=== PATIENT | female | born 1995 | race Caucasian/White ===

== ENCOUNTER → 2021-02-01 12:06 | Outpatient (CLI) | payer OTHER, SELFPAY ==
--- NOTE | 2021-02-01 | DI.MRI.S_ITS ---
PROCEDURE: MR HAND LT WO CON INDICATIONS: Unspecified injury of unspecified wrist, hand and finger(s), TECHNIQUE: Noncontrast coronal T1 spin echo and T2 fast spin echo with fat saturation, axial proton density fast spin echo and T2 fast spin echo with fat saturation, sagittal T1 spin echo and STIR through the thumb. COMPARISON: None. FINDINGS: Image quality: Excellent. Bones: The bones are normally aligned, without marrow contusions or fractures. No intra-osseous lesions. 1st carpometacarpal joint: On sagittal images, the dorsal radial ligament and posterior oblique ligament appear intact. The intermetacarpal ligament between 1st and 2nd metacarpal bases also appears intact. On the volar aspect, the deep and superficial layers of the anterior oblique ligament appear intact. 1st metacarpal phalangeal joint: The proper and accessory components of radial collateral ligament appears intact along with overlying fibers of abductor pollicis longus tendon. There is suggestion of moderate grade partial thickness tear involving distal ulnar collateral ligaments at their distal insertion with surrounding soft tissue edema. Overlying fibers of adductor pollicis muscle appears intact. The upper neurosis of the adductor pollicis muscle also appears normal. Volar plate appears intact on sagittal images, situated between radial and ulnar sesamoids. Muscles and tendons: No gross signal abnormality is seen in the seen on muscles. Extensor and flexor tendons are grossly intact. No soft tissue signal abnormality. No ganglion cysts. IMPRESSION: 1. Suggestion of moderate grade sprain/partial-thickness tear involving ulnar collateral ligaments at their distal insertions with mild surrounding soft tissue edema. Overlying abductor pollicis longus muscle and upper neurosis are intact. 2. No other ligamentous pathology is seen in left thumb. Flexor and extensor tendons are intact. No muscle signal abnormality. 3. No marrow edema. No fracture or dislocation. Dictated by: Higinio Mclean M.D. on 02/01/2021 at 14:23 Approved by: Higinio Mclean M.D. on 02/01/2021 at 15:06
== END ==
PROVIDERS: PCP Nurse Practitioner Family; Referring Provider Nurse Practitioner Family; Visit Provider Nurse Practitioner Family
DX: S69.90XA Unspecified injury of unspecified wrist, hand and finger(s), initial encounter (principal)
CPT/HCPCS: 73218

== ENCOUNTER → 2021-07-12 11:39 | Outpatient (CLI) | payer OTHER, SELFPAY ==
[2021-07-12 12:09] LABS: COVID19 -Nasal RAPID Negative (Negative)
== END ==
PROVIDERS: PCP Nurse Practitioner Family; Referring Provider Physician Assistant; Visit Provider Physician Assistant
DX: Z20.822 Contact with and (suspected) exposure to COVID-19 (principal)
CPT/HCPCS: 87635

== ENCOUNTER → 2021-09-06 11:37 | Outpatient (CLI) | payer OTHER, SELFPAY ==
[2021-09-06 11:56] LABS: COVID19 -Nasal RAPID POSITIVE (Negative)
== END ==
PROVIDERS: PCP Nurse Practitioner Family; Visit Provider Nurse Practitioner Family
DX: Z20.822 Contact with and (suspected) exposure to COVID-19 (principal)
CPT/HCPCS: 87635